=== PATIENT | female | born 1940 | race Caucasian/White ===

== ENCOUNTER → 2016-09-22 | Day surgery (SDC) | payer OTHER ==
[~2016-09-22] MED LIST: BUPIVACAINE HCL PF 0.75% 30 ML VIAL ONE; CELE200 PO; COZA100T PO; DETR4CAP OR; LABETALOL HCL 100 MG/20 ML VIAL ONE; LACTATED RINGER'S 1000 ML INJ 1,000 ML ONE; LEXA10TA PO; LIDOCAINE 1.5%/EPINEPHrine 1:200,000 PF SOLN 30 ML AMP ONE; MIDAZOLAM HCL 2 MG/2 ML VIAL ONE; NEBI5 PO; OMEP20TA OR; PROPOFOL 200 MG/20 ML AMP IV ONE; ROSU20 PO; ceFAZolin 2 GM PREMIX 50 ML ONE
--- NOTE | 2016-09-24 09:49 | MP ---
cc: BILLY SPARKS M.D. DATE OF SURGERY: 09/22/2016 PREOPERATIVE DIAGNOSIS: Right shoulder full thickness, rotator cuff tear with biceps, subluxation and tendinosis, impingement syndrome. POSTOPERATIVE DIAGNOSIS: Right shoulder full thickness, rotator cuff tear with biceps, subluxation and tendinosis, impingement syndrome. OPERATION: 1. Right shoulder arthroscopic rotator cuff repair. 2. Right shoulder arthroscopic biceps tenodesis. 3. Right shoulder arthroscopic subacromial decompression. ANESTHETIC: Interscalene block General anesthesia. GENERAL SURGEON: Billy Sparks MD. [employer] MANAGER SURGEON: Angie Molina. ESTIMATED BLOOD LOSS: Minimum. DRAINS: None. SPECIMENS: None. COMPLICATIONS: None known. INDICATIONS FOR PROCEDURE: Марина Olivo is an adult female with full thickness rotator cuff tear and chronic pain symptomatology which has been refractory to nonoperative management. She presents now for arthroscopic surgery, risks and benefits have been thoroughly reviewed and a detailed informed consent has been obtained. The assistant secretary Jesse Adams is an advanced registered nurse practitioner, his skill set was medically necessary for the performance of the operations. PROCEDURE The patient is brought into the operating room after given interscalene block. In the operating room. She was placed under general anesthetic. She is turned into the lateral decubitus position with axillary roll in place with a beanbag. The right upper extremity was prepped and draped in usual sterile fashion. IV antibiotics were given. Time-out was completed. The bony landmarks were drawn out about the shoulder. We used three portal technique, posterior, lateral at the junction of the middle and anterior third of the acromion and accessory anterior. A blunt trocar was used to introduce the cannula posteriorly and the shoulder was insufflated with saline. The first photograph demonstrates some fraying along the superior labrum and significant fraying along the biceps tendon. The photograph shows healthy-appearing articular cartilage of the humeral head and glenoid and a healthy-appearing posterior inferior labrum. The third photograph is looking upwards at the fraying along the course the biceps tendon and a full-thickness rotator cuff tear. From this position we examined the biceps tendon and we noted the marked amount fraying throughout, as well as the anterior subluxation course. We prepared the footprint of the rotator cuff from this position of the scope on each side and then we removed the scope out and then looking down to the rotator cuff into the subacromial space and performed subacromial bursectomy and obtained meticulous hemostasis and then proceeded to prepare the cuff from this position removing unstable edges of the rotator cuff to preparing footprint for repair. We assessed the mobility of the rotator cuff and it was significantly limited and we assessed the biceps tendon again and determined that it was significantly unstable and had significant wear with tendinosis. She was indicated for a tenodesis. We shaved the tendon to smaller positioning and then did a running whipstitch arthroscopically and then released the tendon from the superior labrum and prepared and smoothed this area and then prepared the bicipital groove and then by using the shaver to come down to bleeding bone, we then used to the [employer] bio tenodesis set for fixation of the screw. We proceeded with a guide pin into the top of the bicipital groove and then over reamed this with 7 mm reamer and then proceeded to use the specialized screwdriver to fixate the tendon over a 7 x 23 mm Screw and then we tied this off with arthroscopic knot trier and noted very good stability and the length of the tendon appeared to be appropriate. At this point we put the arthroscope back into the joint and performed a capsular release which improved the mobilization we came back to the subacromial space and this was still very tight and therefore we did interval slide release between the subscapularis and the supraspinous and this improved the mobilization and then we did a [id number] stitch mobilizing this laterally and then we used the [employer] biocomposite 4.75 suture anchors speed bridge technique with one additional suture posteriorly and two additional sutures anteriorly to prevent dog ear formation and pulled this all out to our lateral based knotless anchors for stability and anatomic repair appeared excellent. The photograph showed final result. We did note an anterior acromial spur and we did after completing the bursectomy use the shaver on the undersurface the acromion to perform a acromionectomy removing approximately 4 mm of bone on the undersurface of the anterior acromion and removing a portion of the coracoacromial ligament. The final photograph showed this showed the arthroscopic repair. Hemostasis was excellent. The arthroscopic equipment was removed. We closed with absorbable sutures and Steri-Strips. Sterile dressing was applied. Standard sling was applied. The patient was awoken return recovery room in stable condition. MD Elva Ferguson /1:24 PM /9:10 AM
== END | disposition home or self-care (01) ==
LOC: ESDC 08:03
PROVIDERS: ATTEND Orthopaedic Surgery Sports Medicine
DX: M75.121 Complete rotator cuff tear or rupture of right shoulder, not specified as traumatic (principal); S46.111A Strain of muscle, fascia and tendon of long head of biceps, right arm, initial encounter; M75.41 Impingement syndrome of right shoulder
CPT/HCPCS: 01630; 01716; 01991; 29826; 29827; 29828; 64417; C1713; J0690; J2250; J7120